=== PATIENT | male | born 1985 | race American Indian/Alaskan Native ===

== ENCOUNTER 2017-10-09 11:54 | Emergency (ER) | payer SELFPAY ==
--- NOTE | 2017-10-09 13:25 | Emergency Department Report ---
Chief Complaint: Fever Stated Complaint: FLU SX Time Seen by Provider: 10/09/17 13:14 - HPI History of Present Illness: Pt is a 32 yo male who states that he has had fever x 1 day and bodyaches. Pt state shis temp at home was 101 and had no known flu exposure. Pt stated he had cough but no abdominal pain, vomiting, or diarrhea. - ROS Review of Systems: ROS: all other systems reveiwed and neg except as noted per HPI PE: General : awake, alert in no acute distress Heent: eomi, perrla, mmm Lungs: clear] Heart: rrr no m/g/r abd: soft, nd, nt +Bs, no peritoneal signs - Exam Vital Signs: Vital Signs 10/09/17 11:59 Temperature 98.6 F Pulse Rate 93 H Respiratory 20 Rate Blood Pressure 162/89 O2 Sat by Pulse 100 Oximetry Physical Exam: ROS: all other systems reveiwed and neg except as noted per HPI PE: General : awake, alert in no acute distress Heent: eomi, perrla, mmm Lungs: clear] Heart: rrr no m/g/r abd: soft, nd, nt +Bs, no peritoneal signs MSE screening note: Focused history and physical exam performed. Due to findings the following was ordered: ED Disposition for MSE Condition: Stable Referrals: PRIMARY CARE, [Primary Care Provider] - 3-5 Days
[2017-10-09 16:01] VITALS: BP 131/62
--- NOTE | 2017-10-09 16:08 | Emergency Department Report ---
HPI - General Chief Complaint: Fever Time Seen by Provider: 10/09/17 13:14 - HPI HPI: Patient here with fever 102.7 that started this morning at home, body aches cough that started yesterday. Denies any chest pain or shortness of breath. Body aches is 8 out of 10 and achy better with rest and worse with walking around. Denies any sore throat or earache. Reports nasal congestion and runny nose. Denies any abdominal or back pain. Denies any urinary burning frequency or urgency. Denies any neck pain or stiffness. Reports that he has a slight headache frontally at 2 out of 10. He said he took Tylenol prior to coming to the emergency room. History of asthma and hypertension. ED Past Medical Hx - Past Medical History Previous Medical History?: Yes Hx Hypertension: Yes Hx Asthma: Yes - Surgical History Past Surgical History?: Yes Additional Surgical History: Hernia repair - Family History Family history: no significant - Social History Smoking Status: Never Smoker Substance Use Type: None - Medications Home Medications: Home Medications Medication Instructions Recorded Confirmed Last Taken Type Ibuprofen [Motrin] 600 mg PO Q8H PRN #12 tablet 10/09/17 Unknown Rx Ondansetron [Zofran Odt] 4 mg PO Q6H PRN #12 tab.rapdis 10/09/17 Unknown Rx Oseltamivir [Tamiflu] 75 mg PO BID #10 cap 10/09/17 Unknown Rx ED Review of Systems ROS: Stated complaint: FLU SX Other details as noted in HPI Comment: All other systems reviewed and negative Constitutional: chills, fever, weakness Eyes: denies: eye pain, eye discharge ENT: congestion. denies: ear pain, throat pain, dental pain, hearing loss, epistaxis Respiratory: cough. denies: orthopnea, shortness of breath, stridor, wheezing Cardiovascular: denies: chest pain, palpitations, orthopnea, edema, syncope, paroxysmal nocturnal dyspnea Gastrointestinal: denies: abdominal pain, nausea, vomiting, diarrhea, constipation Genitourinary: denies: dysuria, hematuria, discharge Musculoskeletal: myalgia. denies: back pain, joint swelling, arthralgia Skin: denies: rash Neurological: headache, weakness. denies: numbness, paresthesias, confusion Physical Exam - Physical Exam Vital Signs: Vital Signs 10/09/17 10/09/17 11:59 16:00 Temperature 98.6 F 99.4 F Pulse Rate 93 H 86 Respiratory 20 20 Rate Blood Pressure 162/89 Blood Pressure 131/62 [Right] O2 Sat by Pulse 100 100 Oximetry General: This is a 32-year-old male well-nourished well-developed in no acute distress appears mildly ill but nontoxic Physical Exam: Head: Normocephalic, atraumatic, no abrasion, no bruising and no contusion. Eyes: Biateral pupils equal and reactive to light, bilateral EOM intact.. Bilateral conjunctival and sclera without injection, normal accommodation. No nystagmus Mouth: Moist, no pharyngeal exudate or erythema. No peritonsillar abscesses. Uvula is midline and oral airways patent. Ears: Bilateral TM congested without erythema. Bilateral EAC without any redness swelling or drainage. No mastoid bone tenderness Nose:Bilateral nasal turbinates congested with erythema and clear drainage. Maxillary and frontal sinuses tender to palpate. Neck: Supple, No Cervical adenopathy, full range of motion and no C-spine tenderness. No swelling or tracheal deviation normal reflexes Cardiovascular: S1, S2. Regular rate and rhythm. No murmur. Lungs: No rhonchi , wheezes or rales. No chest wall tenderness. No chest contusion. No bruising to chest. Dry cough MSK: Strength 5/5 in all extremities. No joint deformity or crepitus. Normal inspection. Full range of motion to all extremities. No laceration, abrasion or ecchymotic area noted. Abdomen: Non-tender to palpate in all quadrants, no guarding or rebound tenderness, positive bowel sounds in all quadrants. No CVA tenderness. No hernia, bruit or mass. No rigidity or distention. Extremities: No clubbing, cyanosis or edema. +2 pulses. No neurovascular compromise Skin: Clean, dry and intact. No rash or lesions. Neurological: GCS at 15, speech is clear and fluid. Normal gait, normal reflexes. No motor or sensory deficit. No facial droop . Alert and oriented 3. The Romberg and negative pronator drift. Back: No vertebral tenderness, no paraspinal tenderness. No saddle anesthesia and negative SLR bilaterally Psych: Normal mood and behavior ED Course Vital Signs 10/09/17 10/09/17 11:59 16:00 Temperature 98.6 F 99.4 F Pulse Rate 93 H 86 Respiratory 20 20 Rate Blood Pressure 162/89 Blood Pressure 131/62 [Right] O2 Sat by Pulse 100 100 Oximetry - Reevaluation(s) Reevaluation #1: 10/09/17 18:47 Patient given ibuprofen 800 mg and Zofran 8 mg ODT and emergency room and said he felt better. Vital signs as better and he has low-grade fever. He is able to tolerate oral liquids in the emergency room without any difficulties ED Medical Decision Making - Lab Data Influenza A and B- - Medical Decision Making ED course: Generic flulike symptoms and fluid and be negative. Patient was given Motrin 800 mg in the ER along with Zofran 8 mg ODT which relieved his pain and nausea. Patient hydrated an emergency room. I gave him results of his flu test and also diagnosis. He voiced understanding and discharged home with prescription for ibuprofen, Tamiflu and Zofran and to follow up with his primary care. Critical care attestation.: If time is entered above; I have spent that time in minutes in the direct care of this critically ill patient, excluding procedure time. ED Disposition Clinical Impression: Acute viral syndrome, Upper respiratory infection with cough and congestion, Fever chills, Musculoskeletal pain Disposition: [id number] TO HOME OR SELFCARE Is pt being admited?: No Does the pt Need Aspirin: No Condition: Stable Instructions: Fever in Adults (ED), Viral Syndrome (ED), Acute Cough (ED) Additional Instructions: increase fluid intake to 2-3 L of liquids to include oriented use, cranberry juice and water daily Pain medication as prescribed Take Motrin for pain and/or fever Return to the emergency room if his symptoms worsen Take Tamiflu and this might help to reduce symptoms. Follow-up with a primary care physician in 2-3 days and if he cannot get him a primary care follow-up with outside Medical Center. The instructions and paperwork Prescriptions: Ibuprofen [Motrin] 600 mg PO Q8H PRN #12 tablet PRN Reason: FEVER/PAIN Ondansetron [Zofran Odt] 4 mg PO Q6H PRN #12 tab.rapdis PRN Reason: Nausea And Vomiting Oseltamivir [Tamiflu] 75 mg PO BID #10 cap Referrals: PRIMARY CARE, [Primary Care Provider] - 2-3 Days [facility] [Outside] - 2-3 Days Forms: Accompanied Note, Work/School Release Form(ED)
[2017-10-09] MEDS ORDERED: MOTRIN PO ONE (16:14)
[2017-10-09] MEDS ORDERED: ZOFRAN ODT PO ONE (16:14)
== END 2017-10-09 19:03 | disposition home or self-care (01) ==
LOC: ED 11:54
DX: J06.9 Acute upper respiratory infection, unspecified (principal); B34.9 Viral infection, unspecified; I10 Essential (primary) hypertension; J45.909 Unspecified asthma, uncomplicated
CPT/HCPCS: 87400; 99282